=== PATIENT | female | born 1990 | race African-American/Black ===

== ENCOUNTER 2016-09-13 04:06 | Emergency (ER) | payer OTHER ==
[~2016-09-13] VITALS: Ht 175.3 cm; Wt 69.4 kg
[2016-09-13] MEDS ORDERED: NS 1,000 ML IV SCH (04:22)
[2016-09-13] MEDS ORDERED: ACETAMINOPHEN TAB 650MG DOSE (2X325MG) PO ONE (04:30)
[2016-09-13 04:51] LABS: BASO % 0.3 % (0.0-1.0); EOS # 0.2 K/mm3 (0.0-0.50); LARGE UNSTAINED CELL # 0.2 K/mm3 (0.0-0.4); MEAN CORPUSCULAR HEMOGLOBIN 28.7 pg (27.0-33.0); MEAN CORPUSCULAR HGB CONC 33.5 g/dl (32.0-36.5); MEAN CORPUSCULAR VOLUME 85.5 fl (80.0-96.0); MONO # 0.4 K/mm3 (0.0-0.8); MONO % 5.9 % (0.0-5.0); NEUTROPHILS # 4.7 K/mm3 (1.8-7.7); NEUTROPHILS % 63.8 % (36.0-66.0); PLATELET COUNT, AUTOMATED 215 k/mm3 (150-450); RED CELL DISTRIBUTION WIDTH 12.9 % (11.5-14.5); WHITE BLOOD COUNT 7.4 K/mm3 (4.0-10.0)
[2016-09-13 05:10] LABS: CONTROL LINE HCG INT CTR LINE PRESENT
[2016-09-13 05:17] LABS: ANION GAP 8 MEQ/L (8-16); BLOOD UREA NITROGEN 8 MG/DL (7-18); CALCIUM LEVEL 8.2 MG/DL (8.5-10.1); CARBON DIOXIDE LEVEL 26 MEQ/L (21-32); CHLORIDE LEVEL 107 MEQ/L (98-107); GLOMERULAR FILTRATION RATE > 60.0 (>60); GLUCOSE, FASTING 86 MG/DL (70-105); POTASSIUM SERUM 3.7 MEQ/L (3.5-5.1); SODIUM LEVEL 141 MEQ/L (136-145)
[2016-09-13 05:55] LABS: HCG, SERUM QUANTITATIVE 3696 MIU/ML
--- NOTE | 2016-09-13 06:10 | REPUSA ---
CLINICAL HISTORY: Neck pain. TECHNIQUE: Multiple axial images were obtained through the cervical spine. Images were also reconstru cted in coronal and sagittal planes. The study was performed without IV contrast. COMMENTS: There is no fracture or spondylolisthesis visualized. The paraspinal soft tissues are unremarkable. T here are no lytic or blastic lesions. Straightening of cervical lordosis is seen, suggesting muscular spasm. There is evidence of minimal m ultilevel disk disease, demonstrated by minimal osteophytosis and endplate sclerosis. No significant disk herniation is noted at any level. Canal and foramina remain patent. IMPRESSION: 1. No fracture or spondylolisthesis. 2. Straightening of cervical lordosis is seen, suggesting muscular spasm. 3. Minimal multilevel spondylosis. Thank you for your kind referral of this patient.
--- NOTE | 2016-09-13 06:15 | REP ---
Clinical: Trauma. Technique: AP, lateral, bilateral oblique views left wrist . Findings: The carpal bones, surrounding osseous structures, soft tissues, and joint spaces are normal. There is no evidence for acute fracture or dislocation. No subcutaneous emphysema or radiodense foreign body. Impression: Normal wrist series. No acute fracture or dislocation Signed by Sreekanth Nice MD 09/13/2016 06:06 A
--- NOTE | 2016-09-13 06:16 | REP ---
Clinical: Trauma. Technique: AP, lateral, bilateral oblique views left hand . Findings: The osseous structures and joint spaces are intact and normal. There is no evidence for acute fracture or dislocation. Surrounding soft tissues are unremarkable. No subcutaneous emphysema or radiodense foreign body. Impression: No acute fracture or dislocation. Signed by Sreekanth Nice MD 09/13/2016 06:07 A
--- NOTE | 2016-09-13 06:18 | REP ---
Clinical: Trauma. Technique: AP and lateral views of the left humerus. Findings: No acute fracture or dislocation. Joint spaces, osseous structures, and surrounding soft tissues are normal. No subcutaneous emphysema or radiodense foreign body. Impression: Normal left humerus radiographs. No acute fracture or dislocation. Signed by Sreekanth Nice MD 09/13/2016 06:09 A
--- NOTE | 2016-09-13 06:21 | REP ---
Clinical: Trauma. Technique: AP and lateral views of the left forearm. Findings: No acute fracture or dislocation. Skeletal structures, joint spaces, and surrounding soft tissues are normal. No subcutaneous emphysema or radiodense foreign body. Impression: Normal left forearm. No acute fracture or dislocation. Signed by Sreekanth Nice MD 09/13/2016 06:13 A
--- NOTE | 2016-09-13 06:24 | REP ---
Clinical: Chest pain with trauma . Comparison: None . Technique: PA and lateral. Findings: The mediastinum and cardiac silhouette are normal. The lung knapp are clear and without acute consolidation, effusion, or pneumothorax. The skeletal structures are intact and normal. Impression: 1. No acute cardiopulmonary process. Signed by Sreekanth Nice MD 09/13/2016 06:16 A
--- NOTE | 2016-09-13 08:21 | REP ---
Obstetric sonography: History: Vaginal bleeding. Beta HCG level 3696. Findings: Transabdominal and transvaginal scanning are performed. Uterine dimensions are 8.2 x 5.3 x 7.9 cm. Endometrial echo is heterogeneously thickened up to 11 mm. No intrauterine gestational sac is seen. There is no evidence of hemoperitoneum or cul-de-sac fluid. No adnexal mass is seen. Normal ovaries are noted. Right ovary dimensions are 3.3 x 1.8 x 1.9 cm. Left ovary measures 3.7 x 1.5 x 2.6 cm. Impression: Mildly enlarged but empty uterus. No adnexal mass, cyst or cul-de-sac fluid seen. Normal ovaries. Nonspecific sonographic findings: Incomplete AB versus early IUP. Ectopic cannot be completely excluded. Clinical and possibly sonographic followup advised. Signed by Garland Rendon MD 09/13/2016 12:24 P
[2016-09-13 09:31] VITALS: BP 118/82
--- NOTE | 2016-09-13 11:09 | ECGEPIP ---
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
== END 2016-09-13 09:35 | disposition home or self-care (01) ==
LOC: M ED 06:34
DX: O20.0 Threatened abortion (principal); O9A.211 Injury, poisoning and certain other consequences of external causes complicating pregnancy, first trimester; S60.212A Contusion of left wrist, initial encounter; W10.8XXA Fall (on) (from) other stairs and steps, initial encounter; Y92.098 Other place in other non-institutional residence as the place of occurrence of the external cause; Y93.89 Activity, other specified; Y99.8 Other external cause status